=== PATIENT | female | born 1940 | race Caucasian/White ===

== ENCOUNTER → 2025-06-20 09:14 | Outpatient (BNVA) | payer MEDICARE, OTHER, SELFPAY | PROVIDERS: Family Provider Family Medicine; Visit Provider Dermatology | DX: L64.8 Other androgenic alopecia (principal); L23.9 Allergic contact dermatitis, unspecified cause; D48.5 Neoplasm of uncertain behavior of skin | CPT/HCPCS: 11102; 99203 ==